=== PATIENT | female | born 1990 | race Two or more races ===

== ENCOUNTER 2025-02-05 21:37 | Emergency (ER) | payer MEDICAID, SELFPAY ==
[2025-02-05 21:39] VITALS: BMI 39.0
--- NOTE | 2025-02-05 22:06 | EKG_ITS ---
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
--- NOTE | 2025-02-05 22:07 | PD.EDRME ---
Rapid Medical Screening Exam RME Arrival date/time: 02/05/25 21:37 This is a case of 34-year-old female with no medical history came into the emergency room due to dizziness and palpitation today worsening of the symptoms this patient decided to sought consult here in the emergency room Chief Complaint: General Adult/Misc Complain Time Seen by Provider: 02/05/25 21:51 Exam: Normal rate regular rhythm no murmur clear breath sounds neurological exam is normal and unremarkable Clinical Impression: Dizziness palpatation
[2025-02-05 22:36] VITALS: BP 133/83; PULSE 87; RESP 18; TEMP 36.7; O2SAT 98
[2025-02-05 22:44] VITALS: BP 124/86; PULSE 82; RESP 18; TEMP 36.9; O2SAT 100
[2025-02-05 22:46] LABS: Basophils # (Auto) 0.0 Thou/mm3 (0.0-0.2); Basophils % (Auto) 0 % (0-2.5); Eosinophils # (Auto) 0.2 Thou/mm3 (0.0-0.5); Eosinophils % (Auto) 2 % (0-10); Hematocrit 43.9 % (36.0-46.0); Hemoglobin 13.8 g/dL (12.0-16.0); Immature Granulocytes Auto 0.01 Thou/mm3 (0.00-0.00); Lymphocytes # (Auto) 3.5 Thou/mm3 (1.0-4.8); Lymphocytes % (Auto) 29 % (10-50); Mean Corpuscular HGB Conc 31.4 g/dl (31.0-37.0); Mean Corpuscular Hemoglobin 26.0 pg (25.0-35.0); Mean Corpuscular Volume 83 fL (80-100); Monocytes # (Auto) 0.9 Thou/mm3 (0.0-0.8); Monocytes % (Auto) 7 % (0-12); Neutrophils # (Auto) 7.3 Thou/mm3 (1.8-7.7); Neutrophils % (Auto) 62 % (37-80); Nucleated Red Blood Cell # 0.00 Thou/mm3 (0.00-0.00); Nucleated Red Blood Cell % 0 /100 WBC (0); Platelet Count 228 Thou/mm3 (140-440); RDW Standard Deviation 40.0 fL (36.4-46.3); Red Blood Count 5.31 Miln/mm3 (4.00-5.20); White Blood Count 11.9 Thou/mm3 (3.6-11.0)
[2025-02-05 23:07] LABS: Collection Type, Urine Clean Catch
--- NOTE | 2025-02-05 23:07 | PD.EDADULT ---
ED General RME/HPI General Chief complaint: General Adult/Misc Complain Stated complaint: HIGH BLOOD PRESSURE Time Seen by Provider: 02/05/25 21:51 Arrival date/time: 02/05/25 21:37 RME / HPI RME / HPI narrative: 02/05/25 21:37 This is a case of 34-year-old female with no medical history came into the emergency room due to dizziness and palpitation today worsening of the symptoms this patient decided to sought consult here in the emergency room Dr. Diaz?s Main ED Evaluation: 34yo female with a history of HTN (not on medication) presents to the ED for complaints of dizziness and palpitations x 2100. Patient states she had dizziness and palpitations that lasted for a few seconds tonight and was concerned due to her history of high blood pressure, so she came in for evaluation. Patient states her blood pressure systolically at home was 142. Patient denies any headache, chest pain, shortness of breath, or any other associated symptoms. Denies any falls or injuries. NKA. Related Data Allergies Allergy/AdvReac Type Severity Reaction Status Date / Time No Known Allergies Allergy Verified 02/05/25 21:44 Review of Systems Review of Systems Systems Reviewed: All systems reviewed, normal except as documented Past Medical History Social History SMOKING STATUS: Never smoker ED Exam Narrative Physical exam: Generally patient is alert and in no obvious distress, neck showed no goiter, heart regular rate and rhythm, lungs clear to auscultation equal bilaterally, abdomen soft bowel sounds present nondistended nontender, extremities show no edema, neurologic exam shows no motor deficits in Adam Coma Scale of 15. Eyes showed no vertical nystagmus Course Quality Measures none Orders Category Date Time Status EKG (ED ONLY) *Do not use* NOW Care 02/05/25 22:06 Completed EKG (ED Only) Stat Exams 02/05/25 22:06 Draft CBC Stat Lab 02/05/25 22:34 Completed Comprehensive Metabolic Panel Stat Lab 02/05/25 22:34 Completed HCG Qualitative,Urine Stat Lab 02/05/25 22:48 Completed TSH [Thyroid Stimulating Hormone] Stat Lab 02/05/25 22:34 Completed Troponin I Stat Lab 02/05/25 22:34 Completed Urinalysis Stat Lab 02/05/25 22:48 Completed Vital Signs Vital signs: Vital Signs Temperature 98.1 F 02/05/25 22:36 Pulse Rate 87 02/05/25 22:36 Respiratory Rate 18 02/05/25 22:36 Blood Pressure 133/83 H 02/05/25 22:36 Pulse Oximetry (%) 98 02/05/25 22:36 Oxygen Delivery Method Room Air 02/05/25 22:36 Discharge Plan Plan Patient Disposition: HOME (Self Care) Prescriptions/Referrals Referrals: No Primary/Family,Physician [Primary Care Provider] - In 1 week Problem List Clinical Impression: Dizziness, Palpitations Patient/Caregiver Discharge Instructions Education Materials: ED Dizziness, Uncertain Cause, ED Palpitations Additional Instructions: Stay well-hydrated. Follow-up with your doctor as needed for further treatment and evaluation. Print Language: Polish Stand Alone Forms: Lis Award Info., Patient Portal Info Letter MDM Narrative MDM hospital course (for use when minimal MDM required): Scribe Attestation: 02/05/25 - Margy Busch am scribing for and in the presence of Dr. Diaz. And interpreted all labs. There was no significant abnormality. EKG shows normal sinus rhythm at a rate of 80 with ischemic change or ectopy. There is a slight sinus arrhythmia. TSH is normal. Patient's blood pressure is 124/86. Heart rate is 94. Patient is stable for discharge. Dizziness only lasted a couple seconds with palpitations. She feels much improved at this time. Clinical Information Provided by: patient Medical Records reviewed [facility] (Per chart review, patient has no previous ED visits or admissions to this facility.) Meds/Rx considered, not ordered None Labs/Rad/Tests considered, not ordered None Chronic Illness/Social Conditions Explain: Hx HTN Labs Labs: interpreted by me Medication Administration(s) none Diagnosis Differential Diagnosis ED Complaint MDM: See MDM
[2025-02-05 23:10] LABS: Alanine Aminotransferase 18 U/L (10-49); Albumin, Serum 5.0 gm/dL (3.5-5.0); Albumin/Globulin Ratio 1.8 (1.2-2.2); Alkaline Phosphatase 72 U/L (46-116); Anion Gap 10 (7-16); Aspartate Amino Transferase 15 U/L (0-34); BUN/Creatinine Ratio 17 Ratio (12-20); Bilirubin,Total 0.3 mg/dL (0.3-1.2); Blood Urea Nitrogen 12 mg/dL (9-23); Calcium 10.3 mg/dL (8.3-10.6); Calcium (Corrected) 10.3 mg/dL (8.5-10.1); Carbon Dioxide 25.4 mMol/L (20.0-31.0); Chloride 105 mMol/L (98-107); Creatinine (Component) 0.7 mg/dL (0.6-1.3); Estimated Creatinine Clearance 114.7 mL/min (>60); Globulin 2.8 gm/dL (2.3-3.5); Glucose 98 mg/dL (74-106); Osmolality,Calculated 279 (275-295); Potassium 3.6 mMol/L (3.4-5.1); Sodium 140 mMol/L (136-145); Thyroid Stimulating Hormone 4.50 uIU/mL (0.55-4.78); Total Protein 7.8 gm/dL (5.7-8.2); Troponin I < 0.002 ng/mL (0.0-0.045); eGFR > 60 See Note
[2025-02-05 23:13] LABS: Bacteria,Urine 3+; Bilirubin,Urine Negative (Negative); Blood,Urine Negative (Negative); Clarity,Urine Clear (Clear/Hazy); Color,Urine Colorless (Lt Yel-Yel); Glucose, Urine Negative (Negative); Ketones,Urine Negative (Negative); Leukocyte Esterase,Urine Negative (Negative); Nitrite,Urine Negative (Negative); PH,Urine 6.5 (5.0-7.0); Protein,Urine Negative (Neg - Trace); RBC,Urine 1 /hpf (0-3); Specific Gravity,Urine 1.003 (1.001-1.035); Squamous Epithelial Cell,Urine 6 /hpf (0-5); Urobilinogen,Urine Negative mg/dL (0.0-1.0); WBC,Urine < 1 /hpf (0-5)
[2025-02-05 23:14] LABS: HCG Qualitative,Urine Negative
== END 2025-02-05 23:29 | disposition home or self-care (01) ==
PROVIDERS: Nurse Practitioner Family; Emergency Provider Emergency Medicine
DX: R00.2 Palpitations (principal); R42 Dizziness and giddiness; I49.8 Other specified cardiac arrhythmias
CPT/HCPCS: 36415; 80053; 81001; 81025; 84443; 84484; 85025; 93005; 99282

== ENCOUNTER 2025-03-02 13:48 | Outpatient (AMB) | payer MEDICAID, SELFPAY ==
--- NOTE | 2025-03-02 13:59 | ACNOTE_ITS ---
Vital Signs 03/02/25 14:00 Height 1.52 m Height Method Stated Weight 89.925 kg Weight Measurement Method Standing Scale BMI 38.9 BP 116/78 Blood Pressure Source Automatic Cuff Blood Pressure Location Right Upper Arm Position Sitting Respiration 16 Pulse 66 Pulse Source Monitor Temp 97.7 F Temp Source Temporal Artery Scan Pulse Oximetry (%) 97 Oxygen Delivery Method Room Air Allergies/Meds Allergies & Medications Allergies No Known Allergies Allergy (Verified 03/02/25 14:01) Medication Reconciliation losartan 50 mg tablet 50 mg PO QDAY #30 tabs 03/02/25 [Rx] rosuvastatin 20 mg tablet 20 mg PO QDAY 03/02/25 [History Confirmed 03/02/25] MA Intake Visit Data Collection New Patient or Established: Established Patient (seen at [facility] within 3 years) Seen by Clinical Staff ONLY (RN/DANIELA): No Pain Present Currently: No Pain scale:: 0 Pain Scale Used: Dewitt-Murphy/Numerical Leadite Worker Required: No PCP or OBGYN visit in last 3 months: No Hx Now: Yes Do You Feel Safe at Home: Yes Authorities Contacted: N/A Smoking Status Smoking Status: Never smoker Immunization / Flu Flu Vaccine in the Last 12 Months: Yes Date of most recent flu vaccination: 02/28/25 Flu Vaccine Exclusion Criteria: Already Received Past Medical History Past Medical History CARDIAC: Positive Hypercholesterolemia and Hypertension; Negative Congestive Heart Failure RESPIRATORY: Negative Chronic Obstructive Pulmonary Disease (COPD) GENITOURINARY: Negative Renal Disease ENDOCRINE: Negative Diabetes Mellitus Type 1 or Diabetes Mellitus Type 2 Surgical History SURGICAL: Positive Section Social History SMOKING STATUS: Smoking status: Never smoker ALCOHOL: Alcohol Intake: Never Patient Portal Questionaires PHQ-9 PHQ-2 Over the last 2 weeks, how often have you been bothered by any of the following problems? 1. Little interest or pleasure in doing things: not at all 2. Feeling down, depressed, or hopeless: not at all Total score: 0 PHQ-9 3. Trouble falling or staying asleep, or sleeping too much: Not at all 4. Feeling tired or having little energy: Not at all 5. Poor appetite or overeating: Not at all 6. Feeling bad about yourself - or that you are a failure or have let yourself or your family down: Not at all 7. Trouble concentrating on things, such as reading the newspaper or watching television: Not at all 8. Moving or speaking so slowly that other people could have noticed? - Or the opposite - being so fidgety or restless that you have been moving around a lot m ore than usual: not at all 9. Thoughts that you would be better off or of hurting yourself in some way: Not at all Total score: 0 If you checked off any problems, how difficult have these problems made it for you to do your work, take care of things at home, or get along with other people?: not difficult at all Source: Developed by Drs. Kirby Cesar, Milly Xie, Alfredo Navas and colleagues, with an educational nick from [employer]. Social History Tobacco History Smoking Status: Never smoker Alcohol History Alcohol Intake: Never Domestic Abuse History Do You Feel Safe at Home: Yes Review of Systems Report any current symptoms Only answer those that you have currently: Past Medical History Past Medical History Have you ever been diagnosed with any of the following: Cardiology Problems Hypercholesterolemia: Yes Congestive Heart Failure: No Hypertension: Yes Respiratory Problems Chronic Obstructive Pulmonary Disease (COPD): No Genital/Urinary Problems Renal Disease: No Endocrine Problems Diabetes Mellitus Type 1: No Diabetes Mellitus Type 2: No History of Present Illness HPI Narrative Pleasant 34-year-old female with PMHx of HTN and questionable HLD her to establish care after ED visit several weeks ago. She has a strong history of heart disease including PR in her mother at the age of 45. She was diagnosed with HTN in her early 20s during and was previously on Labetalol 100 mg daily. She has been off of BB electively for several years but had started taking them several months ago because she felt that she should be taking them. She did not have any symptoms during when she resumed her meds. However, last month she was feeling palpitations in her chest for which she was seen in the ED and found to have normal BP and sinus rhythm on EKG. Labs were also unremrkable accept for mildy elevated calcium 10.3. She reports resolution of her symptoms since. Denies fever, chills, headaches, chest pain, sob, cough, GI or urinary symptoms. She was previously on ATORVASTATIN but currently not taking. 03/02/2025 BP 116/78 and HR 66 with benign physical exam. Given her symptoms and strong family history. Will repeat labs and refer to cardiology. Unclear if she should be on BB and will switch to LOSARTAN. Meds: stop LABETALOL, start LOSARTAN 50 mg Orders: CBC, CMP, TSH, LIPID, A1C Referrals: Cardiology Follow-up: 2 weeks. Objective/Exam Narrative Physical exam: GENERAL * Normal appearing female. Nad. HEENT * NCAT.?TYLER. Oral mucosa is moist. Patent Nares NECK * Supple, nontender, no JVD. CHEST * RRR, no m/g/r * CTAB, no w/r/r, symmetrical expansion. ABDOMEN * Soft, flat, nontender. No guarding/rebound tenderness/masses. * Bowel sounds presents EXTREMITIES * No edema/cyanosis.? SKIN * Warm and dry, no jaundice/rashes. NEUROMUSCULAR * No lumbar or midline, no CVA, no paraspinal muscle spasm or tenderness. * Moves all 4 extremities well, with full ROM and good CSM. * HERRERA x4, CN II-XII grossly intact. * No focal neurologic deficits. PSYCHIATRY * Normal mood and affect, cooperative, no SI or HI or hallucinations. Assessment & Plan Diagnosis / Problem List (1) Hyperlipemia: Status: Acute (2) Annual physical exam: Status: Acute (3) Family history of heart disease: Status: Acute Orders: Orders Lipid Panel Today E78.5 - Hyperlipidemia, unspecified, Z00.00 - Encounter for general adult medical examination without abnormal findings Thyroid Stimulating Hormone Today Z00.00 - Encounter for general adult medical examination without abnormal findings Ambulatory Hemoglobin A1C Today Z00.00 - Encounter for general adult medical examination without abnormal findings Comprehensive Metabolic Panel Today Z00.00 - Encounter for general adult medical examination without abnormal findings CBC Auto Diff Post-Transfusion Today Z00.00 - Encounter for general adult medical examination without abnormal findings Magnesium Today Z00.00 - Encounter for general adult medical examination without abnormal findings, Z82.49 - Family history of ischemic heart disease and other diseases of the circulatory system Referrals Cardiology R00.2 - Palpitations, Z82.49 - Family history of ischemic heart disease and other diseases of the circulatory system Additional Plan 03/02/2025 BP 116/78 and HR 66 with benign physical exam. Currently asymptomatic. Given her symptoms and strong family history. Will repeat labs and refer to cardiology. Unclear if she should be on BB and will switch to LOSARTAN. Meds: stop LABETALOL, start LOSARTAN 50 mg Orders: CBC, CMP, TSH, LIPID, A1C Referrals: Cardiology Follow-up: 2 weeks. Office Procedures [facility] Level of Care Nursing/Assessment Patient Status: Established Patient Nursing Assessment/Reassessment: Medication Reconciliation, Update PMH in EMR and Vital Signs Coordination of Care: Complex Care and Chronic Disease 1-5, Education Complex Pt/Fam, Consent,records obtained, informed consent, Lab and Imaging orders, Results/Orders obtained and Staff clarify orders Established Patient Charge Established Patient Point Assignment: 110 Established Patient Point Charge: EP Level 3 (80-115)
[2025-03-02 14:00] VITALS: BP 116/78; PULSE 66; RESP 16; TEMP 36.5; O2SAT 97; BMI 38.9
== END 2025-03-02 14:41 | disposition home or self-care (01) ==
LOC: HODAHC 13:48
PROVIDERS: Supervising Provider Internal Medicine
DX: I10 Essential (primary) hypertension (principal); E78.5 Hyperlipidemia, unspecified; Z82.49 Family history of ischemic heart disease and other diseases of the circulatory system
CPT/HCPCS: 99213; G0463